=== PATIENT | male | born 1960 | race Caucasian/White ===

== ENCOUNTER 2017-01-21 18:15 | Emergency (ER) | payer OTHER ==
[~2017-01-21] VITALS: Ht 182.9 cm; Wt 97.8 kg
[~2017-01-21 18:15] MED LIST: ALPRAZOLAM0.5 MG PO; AQUAPHOR OINTM105 GM TP; ATARAX,VISTARIL25 MG PO; BACTRIM,SEPT1 TABLET PO; BACTROBAN OINTM22 GM TP; FISH OIL500 MG PO; KENALOG,ARISTOC80 G1 TP; LOTRIMIN AF24 GM TP; LOTRIMIN AF90 GM TP; ONE DAILY MULT1 EACH PO; OSTEO BI-FLEX1 EAC1 PO; PREDNISONE20 MG PO; VIBRAMYCIN100 MG PO; ZESTRIL,PRINIVI20 MG PO
[2017-01-21 19:02] LABS: ADD MIUA? YES; BILIRUBIN NEGATIVE; BLOOD NEGATIVE; COLOR YELLOW ((YELLOW)); GLUCOSE (STRIP) NEGATIVE; KETONES NEGATIVE; LEUKOCYTES TRACE; NITRITE NEGATIVE; PROTEIN (STRIP) 30; SPECIFIC GRAVITY 1.027 (1.000-1.030)
[2017-01-21 19:10] LABS: BACTERIA NONE SEEN /HPF; EPITHELIAL CELLS RARE /HPF; MUCUS TRACE /LPF; UCUL ADDED? YES; WHITE BLOOD CELLS 15-20 /HPF (0-5)
[2017-01-21] MEDS ORDERED: KEFLEX500 MG PO (20:46)
[2017-01-21 20:58] VITALS: BP 128/87
== END 2017-01-21 20:58 | disposition home or self-care (01) ==
LOC: EME 18:15
DX: N39.0 Urinary tract infection, site not specified (principal); I10 Essential (primary) hypertension; F41.9 Anxiety disorder, unspecified; F17.200 Nicotine dependence, unspecified, uncomplicated
CPT/HCPCS: 81003; 87086; 99281; 99284